=== PATIENT | female | born 1940 | race Caucasian/White ===

== ENCOUNTER 2017-01-24 14:16 | Emergency (ER) | payer MEDICARE ==
[~2017-01-24] VITALS: Ht 162.6 cm; Wt 53.0 kg
[~2017-01-24 14:16] MED LIST: LEVO75TA42 PO; LIPI40TA PO; SITA100 PO; VASE1025 PO
[2017-01-24 14:19] VITALS: BP 127/82; PULSE 102; RESP 17; TEMP 98.7; O2SAT 98
[2017-01-24 14:33] VITALS: BP 123/69; PULSE 113; RESP 24; TEMP 98; O2SAT 96
[2017-01-24] MEDS ORDERED: SODIUM CHLOR 0.9% 1000 ML INJ 1,000 ML IV SCH (14:33)
--- NOTE | 2017-01-24 14:42 | PD ---
HPI Chief Complaint: General Weakness Time Seen by Provider: 14:33 Travel History International Travel<30 days: No Contact w/Intl Traveler<30days: No Traveled to known affect area: No History of Present Illness HPI The patient is a 76-year-old female who presents to the emergency department for nausea, vomiting, and one episode of diarrhea. The patient states her symptoms started earlier today with nausea and vomiting. The patient had one bowel movement which she describes as "water ". The patient has a history of uterine cancer and subsequently underwent total hysterectomy and oophorectomy in 2010. The patient had a recurrent cancer, now has a large tumor in the left lower aspect of her abdomen. The patient is followed by her surgical oncologist, Dr. Castro, and is currently on her third regimen of chemotherapy, tamoxifen. The patient started her tamoxifen one week ago. The patient's brother called her oncologist office, spoke with nursing staff, and they referred her to the emergency department. She complains of chronic left lower quadrant abdominal pain which is dull secondary to the tumor, but denies any change in her abdominal pain. The patient's symptoms are moderate, possibly exacerbated by chemotherapy and currently recurrent cancer, and there are no current alleviating factors. PFSH Past Medical History Cancer: Yes (UTERINE CANCER) Cardiovascular Problems: No Chemotherapy: Yes Diabetes: Yes Hepatitis: No Hiatal Hernia: No Immune Disorder: No Respiratory: No Immunizations Current: Yes Thyroid Disease: No ?: Not Past Surgical History Abdominal Surgery: No AICD: No Cardiac Surgery: No Ear Surgery: No Endocrine Surgery: Yes Genitourinary Surgery: Yes Gynecologic Surgery: Yes (laproscopic surgery of uterine cancer) Joint Replacement: No Oral Surgery: Yes (TOOTH EXTRACTION) Pacemaker: No Thoracic Surgery: No Social History Tobacco Use: No Substance Use: No Allergies-Medications (Allergen,Severity, Reaction): Coded Allergies: Amoxicillin (Verified Allergy, Severe, HIVES, 03/18/11) Reported Meds & Prescriptions Reported Meds & Active Scripts Active Reported Enalapril-Hydrochorothiazide (Enalapril-Hydrochlorothiazide) 10-25 Mg Tab 1 Tab PO DAILY Atorvastatin (Atorvastatin Calcium) 40 Mg Tab 40 Mg PO DAILY Tamoxifen (Tamoxifen Citrate) 20 Mg Tab 20 Mg PO DAILY Januvia (Sitagliptin Phosphate) 100 Mg Tab 100 Mg PO DAILY Protonix (Pantoprazole Sodium) 20 Mg Tab 20 Mg PO DAILY Levothyroxine (Levothyroxine Sodium) 75 Mcg Tab 75 Mcg PO DAILY Review of Systems Except as stated in HPI: all other systems reviewed are Neg General / Constitutional: No: Fever Cardiovascular: No: Chest Pain or Discomfort Respiratory: No: Shortness of Breath Gastrointestinal: Positive: Nausea, Vomiting, Diarrhea, Abdominal Pain Genitourinary: No: Dysuria Musculoskeletal: No: Weakness Neurologic: No: Weakness Physical Exam Narrative GENERAL: Awake, alert, pleasant 76-year-old female who appears her stated age and is in no acute respiratory distress. SKIN: Focused skin assessment warm/dry. HEAD: Atraumatic. Normocephalic. EYES: Pupils equal and round. No scleral icterus. No injection or drainage. ENT: No nasal bleeding or discharge. Mucous membranes pink and moist. NECK: Trachea midline. No JVD. CARDIOVASCULAR: Regular rate and rhythm. No murmur appreciated. RESPIRATORY: No accessory muscle use. Clear to auscultation. Breath sounds equal bilaterally. GASTROINTESTINAL: Abdomen soft, palpable tumor left lower quadrant. No obvious distention. MUSCULOSKELETAL: No obvious deformities. No clubbing. No cyanosis. No edema. NEUROLOGICAL: Awake and alert. No obvious cranial nerve deficits. Motor grossly within normal limits. Normal speech. PSYCHIATRIC: Appropriate mood and affect; insight and judgment normal. Data Data Last Documented VS Vital Signs Date Time Temp Pulse Resp B/P Pulse Ox O2 Delivery O2 Flow Rate FiO2 01/24/17 16:09 87 14 125/56 99 Room Air 01/24/17 14:33 98.0 Orders Complete Blood Count With Diff (01/24/17 14:33) Comprehensive Metabolic Panel (01/24/17 14:33) Lipase (01/24/17 14:33) Lactic Acid (01/24/17 14:33) Urinalysis - C+S If Indicated (01/24/17 14:33) Iv Access Insert/Monitor (01/24/17 14:33) Ecg Monitoring (01/24/17 14:33) Oximetry (01/24/17 14:33) Morphine Inj (Morphine Inj) (01/24/17 14:45) Ondansetron Inj (Zofran Inj) (01/24/17 14:45) Sodium Chlor 0.9% 1000 Ml Inj (Ns 1000 M (01/24/17 14:33) Sodium Chloride 0.9% Flush (Ns Flush) (01/24/17 14:45) Abdomen, Upright Only (01/24/17 14:33) Sodium Chlor 0.9% 1000 Ml Inj (Ns 1000 M (01/24/17 16:00) Urine Culture (01/24/17 16:00) Labs Laboratory Tests Test 01/24/17 01/24/17 01/24/17 14:40 15:05 16:00 White Blood Count 14.7 TH/MM3 Red Blood Count 4.23 MIL/MM3 Hemoglobin 11.9 GM/DL Hematocrit 35.7 % Mean Corpuscular Volume 84.4 FL Mean Corpuscular Hemoglobin 28.2 PG Mean Corpuscular Hemoglobin 33.4 % Concent Red Cell Distribution Width 15.3 % Platelet Count 473 TH/MM3 Mean Platelet Volume 7.4 FL Neutrophils (%) (Auto) 88.9 % Lymphocytes (%) (Auto) 7.6 % Monocytes (%) (Auto) 2.5 % Eosinophils (%) (Auto) 0.1 % Basophils (%) (Auto) 0.9 % Neutrophils # (Auto) 13.1 TH/MM3 Lymphocytes # (Auto) 1.1 TH/MM3 Monocytes # (Auto) 0.4 TH/MM3 Eosinophils # (Auto) 0.0 TH/MM3 Basophils # (Auto) 0.1 TH/MM3 CBC Comment DIFF FINAL Differential Comment Sodium Level 135 MEQ/L Potassium Level 3.7 MEQ/L Chloride Level 103 MEQ/L Carbon Dioxide Level 22.6 MEQ/L Anion Gap 9 MEQ/L Blood Urea Nitrogen 20 MG/DL Creatinine 1.13 MG/DL Estimat Glomerular Filtration 47 ML/MIN Rate Random Glucose 197 MG/DL Calcium Level 9.5 MG/DL Total Bilirubin 0.6 MG/DL Aspartate Amino Transf 27 U/L (AST/SGOT) Alanine Aminotransferase 18 U/L (ALT/SGPT) Alkaline Phosphatase 100 U/L Total Protein 7.3 GM/DL Albumin 3.5 GM/DL Lipase 199 U/L Lactic Acid Level 1.6 mmol/L Urine Color YELLOW Urine Turbidity HAZY Urine pH 6.0 Urine Specific Miller 1.019 Urine Protein 100 mg/dL Urine Glucose (UA) NEG mg/dL Urine Ketones TRACE mg/dL Urine Occult Blood NEG Urine Nitrite NEG Urine Bilirubin NEG Urine Urobilinogen LESS THAN 2.0 MG/DL Urine Leukocyte Esterase MOD Urine RBC 1 /hpf Urine WBC 15 /hpf Urine Squamous Epithelial 2 /hpf Cells Urine Hyaline Casts 14 /lpf Urine Mucus FEW /lpf Microscopic Urinalysis Comment CULTURE INDICATED MDM Medical Decision Making Medical Screen Exam Complete: Yes Emergency Medical Condition: Yes Medical Record Reviewed: Yes Interpretation(s) Laboratory Tests Test 01/24/17 01/24/17 01/24/17 14:40 15:05 16:00 White Blood Count 14.7 TH/MM3 Red Blood Count 4.23 MIL/MM3 Hemoglobin 11.9 GM/DL Hematocrit 35.7 % Mean Corpuscular Volume 84.4 FL Mean Corpuscular Hemoglobin 28.2 PG Mean Corpuscular Hemoglobin 33.4 % Concent Red Cell Distribution Width 15.3 % Platelet Count 473 TH/MM3 Mean Platelet Volume 7.4 FL Neutrophils (%) (Auto) 88.9 % Lymphocytes (%) (Auto) 7.6 % Monocytes (%) (Auto) 2.5 % Eosinophils (%) (Auto) 0.1 % Basophils (%) (Auto) 0.9 % Neutrophils # (Auto) 13.1 TH/MM3 Lymphocytes # (Auto) 1.1 TH/MM3 Monocytes # (Auto) 0.4 TH/MM3 Eosinophils # (Auto) 0.0 TH/MM3 Basophils # (Auto) 0.1 TH/MM3 CBC Comment DIFF FINAL Differential Comment Sodium Level 135 MEQ/L Potassium Level 3.7 MEQ/L Chloride Level 103 MEQ/L Carbon Dioxide Level 22.6 MEQ/L Anion Gap 9 MEQ/L Blood Urea Nitrogen 20 MG/DL Creatinine 1.13 MG/DL Estimat Glomerular Filtration 47 ML/MIN Rate Random Glucose 197 MG/DL Calcium Level 9.5 MG/DL Total Bilirubin 0.6 MG/DL Aspartate Amino Transf 27 U/L (AST/SGOT) Alanine Aminotransferase 18 U/L (ALT/SGPT) Alkaline Phosphatase 100 U/L Total Protein 7.3 GM/DL Albumin 3.5 GM/DL Lipase 199 U/L Lactic Acid Level 1.6 mmol/L Urine Color YELLOW Urine Turbidity HAZY Urine pH 6.0 Urine Specific Miller 1.019 Urine Protein 100 mg/dL Urine Glucose (UA) NEG mg/dL Urine Ketones TRACE mg/dL Urine Occult Blood NEG Urine Nitrite NEG Urine Bilirubin NEG Urine Urobilinogen LESS THAN 2.0 MG/DL Urine Leukocyte Esterase MOD Urine RBC 1 /hpf Urine WBC 15 /hpf Urine Squamous Epithelial 2 /hpf Cells Urine Hyaline Casts 14 /lpf Urine Mucus FEW /lpf Microscopic Urinalysis Comment CULTURE INDICATED Differential Diagnosis Differential diagnosis includes gastroenteritis, partial small bowel obstruction , tamoxifen side effect, dehydration, electrolyte abnormality, ileus. Narrative Course IV was established, labs were drawn and sent, and the patient was placed on cardiac telemetry monitoring and continuous pulse oximetry monitoring. The patient was administered Zofran, morphine, and IV fluids. Upright x-ray was obtained. Upright x-ray reveals no evidence of obstruction. The patient was reevaluated at 4 PM, her symptoms had improved. Patient does have mildly elevated creatinine, mild hemoconcentration, most likely secondary to dehydration. I discussed the patient with the SECOND HAND for Dong Pascal, who states the patient can be discharged home if electrolytes are unremarkable. UA is positive for UTI with 15 WBCs, therefore, culture was ordered. The patient was administered Cipro 400 mg intravenously. The patient will be discharged home on Cipro, Zofran, and [place]. She is advised to follow- up with her primary physician and return if symptoms worsen or progress. Diagnosis Primary Impression: Nausea vomiting and diarrhea Additional Impressions: Dehydration UTI (urinary tract infection) Qualified Code: N30.00 - Acute cystitis without hematuria Patient Instructions: General Instructions Additional Instructions: Medications as directed. Plenty of fluids to stay hydrated. Follow-up with your primary physician and surgical oncologist. Return if symptoms worsen or progress. Med/Other Pt SpecificInfo: Prescription(s) given Scripts Hydrocodone-Acetaminophen ([place])5-325 mg Tab1 Tab PO Q6H PRN (PAIN) #15 TAB Ref 0 Prov:Jeramie Betts MD 01/24/17 Ondansetron Odt (Zofran Odt)4 Mg Tab4 Mg SL Q6HR PRN (Nausea/Vomiting) #10 TAB Ref 0 Prov:Jeramie Betts MD 01/24/17 Ciprofloxacin (Cipro)500 Mg [id number] Mg PO BID 7 Days Ref 0 Prov:Jeramie Betts MD 01/24/17 Disposition: DISCHARGE HOME Condition: Stable Jeramie Betts MD Jan 24, 2017 14:42
[2017-01-24] MEDS ORDERED: SODIUM CHLORIDE 0.9% FLUSH 10 ML FLUSH IV FLUSH PRN (14:45)
[2017-01-24] MEDS ORDERED: MORPHINE SULFATE 4 MG/ML INJ IV PUSH ONE (14:45)
[2017-01-24] MEDS ORDERED: ONDANSETRON HCL 4 MG/2 ML VIAL IVP ONE (14:45)
[2017-01-24 15:03] LABS: AUTOMATED NEUTROPHIL # 13.1 TH/MM3 (1.8-7.7); BASOPHIL # 0.1 TH/MM3 (0-0.2); BASOPHIL % 0.9 % (0.0-2.0); EOSINOPHIL % 0.1 % (0.0-4.0); HEMATOCRIT 35.7 % (35.0-46.0); HEMO FLAGS DIFF FINAL; LYMPH % 7.6 % (9.0-44.0); LYMPHOCYTE # 1.1 TH/MM3 (1.0-4.8); MEAN CELL VOLUME 84.4 FL (80.0-100.0); MEAN CORPUSCULAR HEMOGLOBIN 28.2 PG (27.0-34.0); MEAN CORPUSCULAR HGB CONC 33.4 % (32.0-36.0); MONO % 2.5 % (0.0-8.0); NEUT % 88.9 % (16.0-70.0); PLATELET COUNT 473 TH/MM3 (150-450); RED BLOOD COUNT 4.23 MIL/MM3 (4.00-5.30); RED CELL DISTRIBUTION WIDTH 15.3 % (11.6-17.2); WHITE BLOOD COUNT 14.7 TH/MM3 (4.0-11.0)
[2017-01-24] MEDS ORDERED: PANT20 PO (15:15)
[2017-01-24] MEDS ORDERED: LEVO75TA3 PO (15:15)
[2017-01-24] MEDS ORDERED: ENAL10TA7 PO (15:15)
[2017-01-24] MEDS ORDERED: TAMO20TA6 PO (15:15)
[2017-01-24] MEDS ORDERED: ATOR40TA16 PO (15:15)
[2017-01-24] MEDS ORDERED: SITA1TAB2 PO (15:15)
[2017-01-24 15:35] LABS: ALT (GPT) 18 U/L (10-53); ANION GAP 9 MEQ/L (5-15); AST (GOT) 27 U/L (15-37); BICARBONATE 22.6 MEQ/L (21.0-32.0); BLOOD UREA NITROGEN 20 MG/DL (7-18); CHLORIDE 103 MEQ/L (98-107); GLOMERULAR FILTRATION RATE 47 ML/MIN (>89); POTASSIUM 3.7 MEQ/L (3.5-5.1); SODIUM (NA) 135 MEQ/L (136-145)
--- NOTE | 2017-01-24 15:35 | RADRPT ---
EXAM DATE/TIME: 01/24/2017 14:47 [facility] COMPARISON: No previous studies available for comparison. INDICATIONS : Abdominal pain, evaluate for an obstruction. MEDICAL HISTORY : Hypertension. Hypothyroidism. Uterine cancer. SURGICAL HISTORY : None. ENCOUNTER: Initial ACUITY: >1 year PAIN SCORE: 2/10 LOCATION: Entire absomen. FINDINGS: A single erect view of the upper and mid abdomen demonstrates the lower lungs to be clear. No eviden ce of free intraperitoneal gas. Gas and stool are noted segmentally in the colon. CONCLUSION: Single view exam demonstrating no evidence of obstruction. Torsten Fitch MD on January 24, 2017 at 15:30 Board Certified Radiologist. This report was verified electronically.
[2017-01-24 15:37] LABS: ALKALINE PHOSPHATASE 100 U/L (45-117); TOTAL BILIRUBIN ADULT 0.6 MG/DL (0.2-1.0)
[2017-01-24] MEDS ORDERED: SODIUM CHLOR 0.9% 1000 ML INJ 1,000 ML IV ONE (16:00)
[2017-01-24 16:09] VITALS: BP 125/56; PULSE 87; RESP 14; O2SAT 99
[2017-01-24 16:38] LABS: BLOOD, URINE NEG (NEG); GLUCOSE,URINE NEG (NEG); HYALINE CAST, URINE 14 /lpf (RARE); KETONE, URINE TRACE mg/dL (NEG); MUCUS URINE FEW /lpf (OCC); NITRITE,URINE NEG (NEG); SQUAMOUS EPITHELIAL CELL URINE 2 /hpf (0-5); URINE COLOR YELLOW (YELLW/STRAW)
[2017-01-24 16:39] LABS: COMMENT (UR) CULTURE INDICATED; CULTURE IF INDICATED CULTURE INDICATED
[2017-01-24] MEDS ORDERED: ZOFR4TAB3 SL (16:43)
[2017-01-24] MEDS ORDERED: CIPR-9 PO (16:43)
[2017-01-24] MEDS ORDERED: NORC5TAB PO (16:43)
[2017-01-24] MEDS ORDERED: CIPROFLOXACIN 400 MG PREMIX 200 ML IV ONE (16:45)
== END 2017-01-24 18:08 | disposition home or self-care (01) ==
LOC: NEPC 14:16
DX: E86.0 Dehydration (principal); N39.0 Urinary tract infection, site not specified; D49.89 Neoplasm of unspecified behavior of other specified sites; B96.89 Other specified bacterial agents as the cause of diseases classified elsewhere; Z85.42 Personal history of malignant neoplasm of other parts of uterus; Z79.899 Other long term (current) drug therapy
CPT/HCPCS: 74000; 80053; 81001; 83605; 83690; 85025; 87086; 96361; 96365; 96375; 99284; J0744; J2270; J2405; J7030

== ENCOUNTER 2017-02-03 12:55 | Emergency (ER) | payer MEDICARE ==
[~2017-02-03] VITALS: Ht 157.5 cm; Wt 52.0 kg
[~2017-02-03 12:55] MED LIST changes: +ATOR40TA16 PO; +CIPR-9 PO; +ENAL10TA7 PO; +LEVO75TA3 PO; -LEVO75TA42 PO; -LIPI40TA PO; +NORC5TAB PO; +PANT20 PO; -SITA100 PO; +SITA1TAB2 PO; +TAMO20TA6 PO; -VASE1025 PO; +ZOFR4TAB3 SL
[2017-02-03 13:01] VITALS: BP 106/58; PULSE 109; RESP 17; TEMP 97.6; O2SAT 100
[2017-02-03 13:05] VITALS: O2SAT 100
[2017-02-03] MEDS ORDERED: MORPHINE SULFATE 4 MG/ML INJ IV PUSH ONE (13:30)
[2017-02-03] MEDS ORDERED: SODIUM CHLOR 0.9% 1000 ML INJ 1,000 ML IV ONE (13:30)
[2017-02-03] MEDS ORDERED: ONDANSETRON HCL 4 MG/2 ML VIAL IV PUSH ONE (13:30)
--- NOTE | 2017-02-03 13:32 | PD ---
HPI Chief Complaint: Abdominal Pain Time Seen by Provider: 13:05 Travel History International Travel<30 days: No Contact w/Intl Traveler<30days: No Traveled to known affect area: No History of Present Illness HPI 76-year-old female complains of left upper quadrant abdominal pain. Patient has history of recurrent metastatic endometrial cancer. Patient was on chemotherapy in the past. Recent PET scan shows recurrence with abdominal wall metastasis on PET scan. Patient has been seen by . Patient is on tamoxifen now. Patient states that she has persistent painful mass on the left upper quadrant of the abdomen. Patient was given prescription for pain medication by her physician however only takes the pain medication once in a while. Patient states that she has poor appetite recently and thinks she is dehydrated. Patient states that she was dizzy and almost passed out this morning. Patient denies any nausea vomiting. Patient states that she has diarrhea yesterday and today. Patient denies any headache. Patient denies any chest pain or shortness of breath. Patient denies any dysuria or frequency. Patient denies any fever chills. Patient denies any back pain. PFSH Past Medical History Cancer: Yes (UTERINE CANCER) Cardiovascular Problems: No Chemotherapy: Yes Diabetes: Yes Patient Takes Glucophage: Yes Hepatitis: No Hiatal Hernia: No Hypertension: Yes Immune Disorder: No Respiratory: No Immunizations Current: Yes Thyroid Disease: Yes Past Surgical History Abdominal Surgery: No AICD: No Cardiac Surgery: No Ear Surgery: No Endocrine Surgery: Yes Genitourinary Surgery: Yes Gynecologic Surgery: Yes (laproscopic surgery of uterine cancer) Joint Replacement: No Oral Surgery: Yes (TOOTH EXTRACTION) Pacemaker: No Thoracic Surgery: No Other Surgery: Yes Social History Alcohol Use: No Tobacco Use: No Substance Use: No Allergies-Medications (Allergen,Severity, Reaction): Coded Allergies: Amoxicillin (Verified Allergy, Severe, HIVES, 02/03/17) Reported Meds & Prescriptions Reported Meds & Active Scripts Active [place] (Hydrocodone-Acetaminophen) 5-325 mg Tab 1 Tab PO Q6H PRN Reported Atorvastatin (Atorvastatin Calcium) 40 Mg Tab 40 Mg PO DAILY Tamoxifen (Tamoxifen Citrate) 20 Mg Tab 20 Mg PO DAILY Januvia (Sitagliptin Phosphate) 100 Mg Tab 100 Mg PO DAILY Protonix (Pantoprazole Sodium) 20 Mg Tab 20 Mg PO DAILY Levothyroxine (Levothyroxine Sodium) 75 Mcg Tab 75 Mcg PO DAILY Review of Systems General / Constitutional: No: Fever Eyes: No: Visual changes HENT: No: Headaches Cardiovascular: No: Chest Pain or Discomfort Respiratory: No: Shortness of Breath Gastrointestinal: Positive: Abdominal Pain Genitourinary: No: Dysuria Musculoskeletal: No: Pain Skin: No Rash Neurologic: No: Weakness Psychiatric: No: Depression Endocrine: No: Polydipsia Hematologic/Lymphatic: No: Easy Bruising Physical Exam Narrative GENERAL: Well-nourished, well-developed patient. SKIN: Focused skin assessment warm/dry. HEAD: Normocephalic. EYES: No scleral icterus. No injection or drainage. NECK: Supple, trachea midline. No JVD or lymphadenopathy. CARDIOVASCULAR: Regular rate and rhythm without murmurs, gallops, or rubs. RESPIRATORY: Breath sounds equal bilaterally. No accessory muscle use. GASTROINTESTINAL: Abdomen soft, nondistended. Patient has solid masses left upper quadrant abdomen with mild tenderness on palpation. No redness overlying skin. No heat. No induration. MUSCULOSKELETAL: No cyanosis, or edema. BACK: Nontender without obvious deformity. No CVA tenderness. No large exam normal. Data Data Last Documented VS Vital Signs Date Time Temp Pulse Resp B/P Pulse Ox O2 Delivery O2 Flow Rate FiO2 02/03/17 13:05 17 02/03/17 13:05 100 Room Air 02/03/17 13:01 97.6 109 106/58 Orders Complete Blood Count With Diff (02/03/17 13:16) Comprehensive Metabolic Panel (02/03/17 13:16) Prothrombin Time / Inr (Pt) (02/03/17 13:16) Act Partial Throm Time (Ptt) (02/03/17 13:16) Lipase (02/03/17 13:16) Urinalysis - C+S If Indicated (02/03/17 13:16) Iv Access Insert/Monitor (02/03/17 13:16) Ecg Monitoring (02/03/17 13:16) Oximetry (02/03/17 13:16) Sodium Chlor 0.9% 1000 Ml Inj (Ns 1000 M (02/03/17 13:30) Morphine Inj (Morphine Inj) (02/03/17 13:30) Ondansetron Inj (Zofran Inj) (02/03/17 13:30) Labs Laboratory Tests Test 02/03/17 13:20 White Blood Count 11.3 TH/MM3 Red Blood Count 4.38 MIL/MM3 Hemoglobin 12.9 GM/DL Hematocrit 36.8 % Mean Corpuscular Volume 84.0 FL Mean Corpuscular Hemoglobin 29.4 PG Mean Corpuscular Hemoglobin 35.0 % Concent Red Cell Distribution Width 15.6 % Platelet Count 513 TH/MM3 Mean Platelet Volume 7.6 FL Neutrophils (%) (Auto) 81.4 % Lymphocytes (%) (Auto) 14.9 % Monocytes (%) (Auto) 2.9 % Eosinophils (%) (Auto) 0.1 % Basophils (%) (Auto) 0.7 % Neutrophils # (Auto) 9.2 TH/MM3 Lymphocytes # (Auto) 1.7 TH/MM3 Monocytes # (Auto) 0.3 TH/MM3 Eosinophils # (Auto) 0.0 TH/MM3 Basophils # (Auto) 0.1 TH/MM3 CBC Comment DIFF FINAL Differential Comment Prothrombin Time 10.2 SEC Prothromb Time International 0.9 RATIO Ratio Activated Partial 22.8 SEC Thromboplast Time Sodium Level 141 MEQ/L Potassium Level 4.2 MEQ/L Chloride Level 107 MEQ/L Carbon Dioxide Level 25.4 MEQ/L Anion Gap 9 MEQ/L Blood Urea Nitrogen 18 MG/DL Creatinine 1.05 MG/DL Estimat Glomerular Filtration 51 ML/MIN Rate Random Glucose 161 MG/DL Calcium Level 9.3 MG/DL Total Bilirubin 0.6 MG/DL Aspartate Amino Transf 35 U/L (AST/SGOT) Alanine Aminotransferase 23 U/L (ALT/SGPT) Alkaline Phosphatase 111 U/L Total Protein 7.2 GM/DL Albumin 3.2 GM/DL Lipase 167 U/L [facility] Medical Decision Making Medical Screen Exam Complete: Yes Emergency Medical Condition: Yes Interpretation(s) 1456 PM. CBC WBC 11.3. Platelet 513. 81 neutrophil. CMP with creatinine 1.05. GFR 51. Glucose 161. Differential Diagnosis Differential diagnosis including acute exacerbation of pain from uterine cancer metastasis, electrolyte imbalance, dehydration. Narrative Course 76-year-old female with painful mass left upper quadrant of the abdomen. History of metastatic uterine cancer. Normal saline solution 1 L IV bolus. Morphine 2 mg IV. Zofran 4 mg IV. Diagnosis Primary Impression: Abdominal pain Qualified Code: R10.12 - Left upper quadrant pain Additional Impression: Endometrial cancer Patient Instructions: General Instructions Additional Instructions: Take medication as needed for pain. Follow-up with personal physician. Return if worse. Med/Other Pt SpecificInfo: Prescription(s) given Scripts Tramadol (Ultram)50 Mg Tab50 Mg PO Q6H PRN (PAIN) #30 TAB Prov:Lester Sheffield MD 02/03/17 Meloxicam (Mobic)15 Mg Tab15 Mg PO DAILY #30 TAB Prov:Lester Sheffield MD 02/03/17 Disposition: 01 DISCHARGE HOME Condition: Stable Lester Sheffield MD February 03, 2017 13:32
[2017-02-03 13:56] LABS: AUTOMATED NEUTROPHIL # 9.2 TH/MM3 (1.8-7.7); BASOPHIL # 0.1 TH/MM3 (0-0.2); BASOPHIL % 0.7 % (0.0-2.0); EOSINOPHIL % 0.1 % (0.0-4.0); HEMATOCRIT 36.8 % (35.0-46.0); HEMO FLAGS DIFF FINAL; LYMPH % 14.9 % (9.0-44.0); LYMPHOCYTE # 1.7 TH/MM3 (1.0-4.8); MEAN CORPUSCULAR HEMOGLOBIN 29.4 PG (27.0-34.0); MONO % 2.9 % (0.0-8.0); NEUT % 81.4 % (16.0-70.0); PLATELET COUNT 513 TH/MM3 (150-450); RED BLOOD COUNT 4.38 MIL/MM3 (4.00-5.30); RED CELL DISTRIBUTION WIDTH 15.6 % (11.6-17.2); WHITE BLOOD COUNT 11.3 TH/MM3 (4.0-11.0)
[2017-02-03 14:06] LABS: APTT (PATIENT) 22.8 SEC (24.3-30.1); INTERNATIONAL NORMALIZED RATIO 0.9 RATIO; PROTHROMBIN TIME - PATIENT 10.2 SEC (9.8-11.6)
[2017-02-03 14:29] LABS: ALKALINE PHOSPHATASE 111 U/L (45-117); ALT (GPT) 23 U/L (10-53); ANION GAP 9 MEQ/L (5-15); AST (GOT) 35 U/L (15-37); BICARBONATE 25.4 MEQ/L (21.0-32.0); BLOOD UREA NITROGEN 18 MG/DL (7-18); CHLORIDE 107 MEQ/L (98-107); GLOMERULAR FILTRATION RATE 51 ML/MIN (>89); SODIUM (NA) 141 MEQ/L (136-145); TOTAL BILIRUBIN ADULT 0.6 MG/DL (0.2-1.0)
[2017-02-03 14:39] LABS: POTASSIUM 4.2 MEQ/L (3.5-5.1)
[2017-02-03] MEDS ORDERED: ULTR50TA5 PO (15:05)
[2017-02-03] MEDS ORDERED: MOBI15TA PO (15:05)
== END 2017-02-03 16:02 | disposition home or self-care (01) ==
LOC: NEPE 12:55
DX: C54.1 Malignant neoplasm of endometrium (principal); R10.12 Left upper quadrant pain
CPT/HCPCS: 80053; 83690; 85025; 85610; 85730; 96361; 96374; 96375; 99284; J2270; J2405; J7030

== ENCOUNTER 2017-05-19 16:07 | Emergency (ER) | payer MEDICARE ==
[~2017-05-19] VITALS: Ht 162.6 cm; Wt 50.0 kg
[~2017-05-19 16:07] MED LIST changes: -CIPR-9 PO; -ENAL10TA7 PO; +MOBI15TA PO; +ULTR50TA5 PO; -ZOFR4TAB3 SL
[2017-05-19 16:11] VITALS: BP 133/63; PULSE 115; RESP 15; TEMP 97.9; O2SAT 96
--- NOTE | 2017-05-19 16:17 | PD ---
Physical Exam Date Seen by Provider: May 19, 2017 Time Seen by Provider: 16:15 Narrative 77 YOWF C/O FALL. L FACIAL INJURY. NO LOC. NECK OR BACK PAIN. PAIN 05/12 VS REVIEWED WAITING FOR BED PLACEMENT Data Data Last Documented VS Vital Signs Date Time Temp Pulse Resp B/P Pulse Ox O2 Delivery O2 Flow Rate FiO2 05/19/17 16:11 97.9 115 15 133/63 96 MDM Supervised Visit with BLADE: Jimenez Doherty May 19, 2017 16:17
[2017-05-19] MEDS ORDERED: TETANUS/DIPHTHERIA TOXOID ADULT 0.5 ML VIAL IM ONE (16:30)
--- NOTE | 2017-05-19 17:34 | RADRPT ---
EXAM DATE/TIME: 05/19/2017 17:14 [facility] COMPARISON: No previous studies available for comparison. INDICATIONS : Head injury due to trip and fall. RADIATION DOSE: 46.13 CTDIvol (mGy) MEDICAL HISTORY : Hypertension. Diabetes mellitus type 2. Uterine cancer, Thyroid Disease. SURGICAL HISTORY : None. ENCOUNTER: Initial ACUITY: 1 day PAIN SCALE: 8/10 LOCATION: Bilateral orbits region. TECHNIQUE: Multiple contiguous axial images were obtained of the head. Using automated exposure control and adj ustment of the mA and/or kV according to patient size, radiation dose was kept as low as reasonably a chievable to obtain optimal diagnostic quality images. DICOM format image data is available electro nically for review and comparison. FINDINGS: CEREBRUM: The ventricles are normal for age. No evidence of midline shift, mass lesion, hemorrhage or acute in farction. No extra-axial fluid collections are seen. POSTERIOR FOSSA: The cerebellum and brainstem are intact. The 4th ventricle is midline. The cerebellopontine angle i s unremarkable. EXTRACRANIAL: The visualized portion of the orbits is intact. There is an air-fluid level in left maxillary sinus. SKULL: The calvaria is intact. No evidence of skull fracture. Hyperostosis frontalis interna is noted which is a normal anatomic variant. There is soft tissue swelling over the left orbit. CONCLUSION: 1. No acute hemorrhage or mass effect. 2. Air-fluid level in left maxillary sinus which could represent fluid or blood. There is no visualiz ed fracture on this CT. Please see facial bone CT which is pending. Torsten Fitch MD on May 19, 2017 at 17:31 Board Certified Radiologist. This report was verified electronically.
--- NOTE | 2017-05-19 17:36 | PD ---
HPI Chief Complaint: Laceration/Skin Injury Time Seen by Provider: 17:36 Travel History International Travel<30 days: No Contact w/Intl Traveler<30days: No Traveled to known affect area: No History of Present Illness HPI 77-year-old female presents to emergency Department with complaint of left eye pain and laceration to her forehead just above the left eye after tripping while walking up the stairs and hitting her head on her countertop. Denies loss of consciousness. Denies anticoagulants. Denies neck pain. Denies nausea , vomiting. Denies change in vision. Denies focal deficits or weakness. Denies headache. Unknown tetanus status. Has not Taken any medications or tried any treatments to alleviate her symptoms. Symptoms are moderate in severity. Allergies to amoxicillin. Takes tamoxifen for uterine cancer that has spread. Is on hospice. Has no other medical complaints. No other modifying factors or associated signs and symptoms. PFSH Past Medical History Cancer: Yes (UTERINE CANCER) Cardiovascular Problems: No Chemotherapy: Yes Diabetes: Yes Hepatitis: No Hiatal Hernia: No Hypertension: Yes Immune Disorder: No Respiratory: No Immunizations Current: Yes Thyroid Disease: Yes ?: Not Past Surgical History Abdominal Surgery: No AICD: No Cardiac Surgery: No Ear Surgery: No Endocrine Surgery: Yes Genitourinary Surgery: Yes Gynecologic Surgery: Yes (laproscopic surgery of uterine cancer) Joint Replacement: No Oral Surgery: Yes (TOOTH EXTRACTION) Pacemaker: No Thoracic Surgery: No Other Surgery: Yes Social History Alcohol Use: No Tobacco Use: No Substance Use: No Allergies-Medications (Allergen,Severity, Reaction): Coded Allergies: amoxicillin (Unverified Allergy, Severe, HIVES, 05/19/17) Reported Meds & Prescriptions Reported Meds & Active Scripts Active Ultram (Tramadol HCl) 50 Mg Tab 50 Mg PO Q6H PRN Mobic (Meloxicam) 15 Mg Tab 15 Mg PO DAILY [place] (Hydrocodone-Acetaminophen) 5-325 mg Tab 1 Tab PO Q6H PRN Reported Atorvastatin (Atorvastatin Calcium) 40 Mg Tab 40 Mg PO DAILY Tamoxifen (Tamoxifen Citrate) 20 Mg Tab 20 Mg PO DAILY Januvia (Sitagliptin Phosphate) 100 Mg Tab 100 Mg PO DAILY Protonix (Pantoprazole Sodium) 20 Mg Tab 20 Mg PO DAILY Levothyroxine (Levothyroxine Sodium) 75 Mcg Tab 75 Mcg PO DAILY Review of Systems Except as stated in HPI: all other systems reviewed are Neg Physical Exam Narrative GENERAL: Well-nourished, well-developed elderly, female patient, in no acute distress SKIN: Warm and dry. Approximately 2 cm laceration above the left eyebrow; bleeding controlled. Ecchymosis noted to the left chin and in between the upper lip and nose. HEAD: Atraumatic. Normocephalic. EYES: Pupils equal and round at 3 mm with brisk reaction. No scleral icterus. No injection or drainage. PERRLA. EOMI. Left raccoon eye. Orbital tenderness on palpation to the upper left orbit. ENT: Mucosa pink and moist. Airway patent. Nasal turbinates appear normal without nasal blood, purulent drainage or septal hematoma. NECK: Moving freely. No midline point tenderness on palpation of the cervical spine. Active rotation greater than 45 to the left and right. Trachea midline. No lymphadenopathy. CARDIOVASCULAR: Regular rate and rhythm. No murmur appreciated. RESPIRATORY: No accessory muscle use. Clear to auscultation. Breath sounds equal bilaterally. GASTROINTESTINAL: Round. MUSCULOSKELETAL: No obvious deformities. No clubbing. No cyanosis. No edema. Patient ambulated from wheelchair to bed in room. NEUROLOGICAL: Awake and alert. Oriented 3. No obvious cranial nerve deficits. Motor grossly within normal limits. Normal speech. No mid-line drift. Moves all extremities. 5/5 strength to all extremities. PSYCHIATRIC: Appropriate mood and affect; insight and judgment normal. Data Data Last Documented VS Vital Signs Date Time Temp Pulse Resp B/P Pulse Ox O2 Delivery O2 Flow Rate FiO2 05/19/17 16:11 97.9 115 15 133/[address] Brain W/O Iv Contrast(Rout) (05/19/17 16:17) Ct Facial Bones W/O Iv Cont (05/19/17 16:17) Tetanus/Diphtheria Tox Adult (Tetanus/Di (05/19/17 16:30) Lidocaine 1% Inj (50 Ml) (Xylocaine 1% I (05/19/17 17:45) Ondansetron Odt (Zofran Odt) (05/19/17 18:00) MDM Medical Decision Making Medical Screen Exam Complete: Yes Emergency Medical Condition: Yes Medical Record Reviewed: Yes Differential Diagnosis Fall, facial laceration, facial contusion, orbital fracture, head injury Narrative Course 77-year-old female with laceration to her left forehead just above her left eyebrow and ecchymosis surrounding her left eye. Patient hit her head after a mechanical trip and fall. Denies loss of consciousness. Denies anticoagulants. Neuro exam is unremarkable. Tetanus updated in the ER. See my procedure note for laceration repair. CT head and CT facial bones ordered. 1743: CT head and CT facial bones concludes: Last [address] 05/19/171616 Signed Impressions: Service Date/Time: May 17:17 - CONCLUSION: 1. Left inferior orbital fracture with mild depression. 2. Large air-fluid level in the left maxillary sinus. 3. Soft tissue swelling over the left orbit and maxilla. The globe is intact in appearance. Torsten Fitch MD Head CT 05/19/171616 Signed Impressions: Service Date/Time: , May 19, 2017 17:14 - CONCLUSION: 1. No acute hemorrhage or mass effect. 2. Air-fluid level in left maxillary sinus which could represent fluid or blood. There is no visualized fracture on this CT. Please see facial bone CT which is pending. Torsten Fitch MD Patient complaining of feeling nauseated. Zofran ordered. 1820: I discussed the patient with Dr. Ya, my attending physician, and he agrees with my treatment plan. Decadron IM administered in the ER. Instructed patient to follow up with maxillofacial. Patient is a hospice patient and has pain medications at home. Instructed patient to follow up with primary care provider. Patient verbalizes understanding and agreement with treatment plan. Patient is medically cleared and stable for discharge. Discussed reasons to return to the emergency department. Patient agrees with treatment plan. The patients vital signs are stable and the patient is stable for outpatient follow- up and treatment. Patient discharged home, stable and in no acute distress. Procedures Procedure Narrative LACERATION LOCATION: Left forehead/eyebrow area LENGTH: 2 cm NUMBER OF STITCHES/VICKY: 5 simple interrupted sutures REPAIR: The area of the laceration was prepped with Betadine and sterilely draped. The laceration was infiltrated with 1% lidocaine. The wound was copiously irrigated and explored without evidence of foreign body, tendon injury or neurovascular injury. The wound was closed using 4-0 Prolene. This was a single layer repair. A sterile dressing was applied. The patient was advised to keep the dressing clean and dry. Patient tolerated the procedure well. Diagnosis Primary Impression: Fall Qualified Code: W19.XXXA - Fall, initial encounter Additional Impressions: Left orbit fracture Qualified Code: S02.82XA - Closed fracture of left orbit, initial encounter Laceration of forehead Qualified Code: S01.81XA - Laceration of forehead, initial encounter Referrals: Jason Easley DMD Primary Care Physician Patient Instructions: Care For Your Stitches (ED), Facial Contusion (ED), Facial Fracture (ED), Facial Laceration (ED), Fall Prevention for Older Adults ( ED), General Instructions Additional Instructions: Tylenol as directed and as needed for pain and inflammation Ice to affected area to reduce pain and inflammation Refer to her discharge instructions for how to care for your stitches Return to the emergency department or follow-up with primary care provider in 5- 7 days for suture removal Follow-up with maxillofacial doctor; Dr. Easley's information has been provided in her discharge instructions; call to make a follow-up appointment Follow up with primary care provider Return to the emergency department immediately with worsening of symptoms Med/Other Pt SpecificInfo: No Meds Exist/No RX given Disposition: 01 DISCHARGE HOME Condition: Stable Pamela Ryan May 19, 2017 17:36
--- NOTE | 2017-05-19 17:42 | RADRPT ---
EXAM DATE/TIME: 05/19/2017 17:17 [facility] COMPARISON: No previous studies available for comparison. INDICATIONS : Left side upper facial pain due to trip and fall. RADIATION DOSE: 36.57 CTDIvol (mGy) MEDICAL HISTORY : Hypertension. Diabetes mellitus type 2. Uterine cancer, Thyroid Disease SURGICAL HISTORY : None. ENCOUNTER: Initial ACUITY: 1 day PAIN SCORE: 8/10 LOCATION: Left upper orbit region. TECHNIQUE: Volumetric scanning of the facial bones was performed. Using automated exposure control and adjustme nt of the mA and/or kV according to patient size, radiation dose was kept as low as reasonably achiev able to obtain optimal diagnostic quality images. DICOM format image data is available electronicall y for review and comparison. FINDINGS: ORBITS: There is a fracture of the left inferior orbital floor which is depressed inferiorly approximately 2 mm. The lamina papyracea appear intact. Superior and lateral orbital black are intact as well. The re troconal structures have a normal configuration. No radiopaque foreign bodies are seen. NASAL BONE: The nasal bone and maxillary spine are intact ZYGOMATIC ARCHES: Symmetric without evidence of fracture. SINUSES: A large air-fluid level is present in left maxillary sinus. The anterior maxilla is intact. NASAL CAVITY: The nasal septum is intact and midline. The lacrimal ducts are intact. SOFT TISSUES: No radiopaque foreign bodies seen. There is soft tissue swelling over the left orbit and maxilla. INTRACRANIAL: No intracranial air seen. CRIBIFORM PLATE: Grossly intact. CONCLUSION: 1. Left inferior orbital fracture with mild depression. 2. Large air-fluid level in the left maxillary sinus. 3. Soft tissue swelling over the left orbit and maxilla. The globe is intact in appearance. Torsten Fitch MD on May 19, 2017 at 17:37 Board Certified Radiologist. This report was verified electronically.
[2017-05-19] MEDS ORDERED: LIDOCAINE HCL 1% 50 ML VIAL INFIL ONE (17:45)
[2017-05-19] MEDS ORDERED: ONDANSETRON ODT 4 MG TAB PO ONE (18:00)
[2017-05-19] MEDS ORDERED: DEXAMETHASONE SOD PHOS 4 MG/ML VIAL IM ONE (18:30)
== END 2017-05-19 18:48 | disposition home or self-care (01) ==
LOC: NEPK 16:07
DX: S02.82XA Fracture of other specified skull and facial bones, left side, initial encounter for closed fracture (principal); S01.81XA Laceration without foreign body of other part of head, initial encounter; E11.9 Type 2 diabetes mellitus without complications; I10 Essential (primary) hypertension; W10.8XXA Fall (on) (from) other stairs and steps, initial encounter; Z88.0 Allergy status to penicillin; Z79.899 Other long term (current) drug therapy; Z23 Encounter for immunization
CPT/HCPCS: 12011; 70450; 70486; 90471; 90714; 96372; 99285; J1100